=== PATIENT | female | born 1985 | race Caucasian/White ===

== ENCOUNTER → 2020-03-03 | Outpatient (CLI) | payer OTHER ==
[~2020-03-03] MED LIST: Augmentin 875-1 EACH PO; CETI5 PO; FLUT.05NI; IBUP800 PO; ONDA4 PO; PARO10 PO; RXONDA4ODT MM
[2020-03-04 17:08] LABS: HPV 16 Negative (Negative); HPV 18 Negative (Negative); HPV OTHER HR TYPES Positive (Negative)
== END | disposition home or self-care (01) ==
LOC: LAB 14:00 → LAB SHORT 14:00
PROVIDERS: Obstetrics & Gynecology
DX: Z01.419 Encounter for gynecological examination (general) (routine) without abnormal findings (principal)
CPT/HCPCS: 87624; 87625; G0123

== ENCOUNTER → 2020-04-02 | Outpatient (CLI) | payer OTHER | END | disposition home or self-care (01) | LOC: LAB SHORT 07:59 → PLD 07:59 | DX: R87.612 Low grade squamous intraepithelial lesion on cytologic smear of cervix (LGSIL) (principal); R87.810 Cervical high risk human papillomavirus (HPV) DNA test positive | CPT/HCPCS: 88305 ==

== ENCOUNTER → 2020-12-17 | Outpatient (CLI) | payer OTHER | END | disposition home or self-care (01) | LOC: LAB 10:20 → LAB SHORT 10:20 | DX: J02.9 Acute pharyngitis, unspecified (principal) | CPT/HCPCS: 87081 ==

== ENCOUNTER → 2021-03-04 | Outpatient (CLI) | payer OTHER ==
[2021-03-08 14:08] LABS: HPV 16 Negative (Negative); HPV 18 Negative (Negative); HPV OTHER HR TYPES Positive (Negative)
== END ==
LOC: LAB 17:00 → LAB SHORT 17:00
PROVIDERS: Obstetrics & Gynecology
DX: Z01.419 Encounter for gynecological examination (general) (routine) without abnormal findings (principal)
CPT/HCPCS: 87624; G0123

== ENCOUNTER 2021-06-18 06:45 | Day surgery (SDC) | payer OTHER ==
[~2021-06-18] VITALS: Ht 167.6 cm; Wt 127.3 kg
[2021-06-18] MEDS ORDERED: IBU600 M1 PO (07:26)
[2021-06-18] MEDS ORDERED: Vitamin D1000 UNI1 PO (07:26)
[2021-06-18] MEDS ORDERED: ESOM20 PO (07:26)
--- NOTE | 2021-06-18 08:32 | NUR ---
06/18/21 0832 Amos [place] BUPIVACAINE 0.5% 30 MLS MIXED W/ EPI 0.15 ML PER ORDER TO CONSTITUTE BUPIVACAINE 0.5% 1:200,000 FOR INJECTION AT OPSITE BY DR MCKINNEY. 30 MLS OF LOCAL INJECTED.
--- NOTE | 2021-06-18 16:29 | NUR ---
06/18/21 1629 TRI CONNER LATE ENTRY: WASTED FENTANLY 50 MCG AFTER PATIENT DISCHARGED. TRIED TO CHANGE AMOUNT GIVEN IN EMAR TO 50 MCG TOTAL BUT FENTANYL DISAPPEARED FROM EMAR SCREEN; UNSURE OF HOW THAT HAPPENED. - SEE VITAL RECORD FOR TIMES AND AMOUNTS. WITNESSED WASTE BY GURVINDER RN AND NEGRITA RN. UNABLE TO WASTE IN PYXIS DUE TO PATIENT DISCHARGED.
== END 2021-06-18 10:32 | disposition home or self-care (01) ==
LOC: ORSCSDS 06:45
PROVIDERS: Podiatrist Foot & Ankle Surgery
PROC: 0QBL0ZZ Excision of Right Tarsal, Open Approach (ICD-10-PCS; principal; 2021-06-18 08:15)
PROC: 0L8N0ZZ Division of Right Lower Leg Tendon, Open Approach (ICD-10-PCS; principal; 2021-06-18 08:15)
DX: M76.61 Achilles tendinitis, right leg (principal); M24.573 Contracture, unspecified ankle; E11.9 Type 2 diabetes mellitus without complications; E66.01 Morbid (severe) obesity due to excess calories; Z68.41 Body mass index [BMI] 40.0-44.9, adult; K21.9 Gastro-esophageal reflux disease without esophagitis; Z79.899 Other long term (current) drug therapy
CPT/HCPCS: 82947; A9270; C1713; J0171; J0690; J1100; J1885; J2250; J2405; J2704; J3010; J7120

== ENCOUNTER 2021-08-09 05:59 | Day surgery (SDC) | payer OTHER ==
[~2021-08-09 05:59] MED LIST changes: +ESOM20 PO; +IBU600 M1 PO; +Vitamin D1000 UNI1 PO
== END 2021-08-09 23:28 | disposition home or self-care (01) ==
LOC: WOUND 05:59
DX: T81.31XA Disruption of external operation (surgical) wound, not elsewhere classified, initial encounter (principal); Y83.8 Other surgical procedures as the cause of abnormal reaction of the patient, or of later complication, without mention of misadventure at the time of the procedure; L97.312 Non-pressure chronic ulcer of right ankle with fat layer exposed; M65.28 Calcific tendinitis, other site; M24.573 Contracture, unspecified ankle; R73.03 Prediabetes; K21.9 Gastro-esophageal reflux disease without esophagitis; E66.9 Obesity, unspecified; Z68.42 Body mass index [BMI] 45.0-49.9, adult
CPT/HCPCS: A9270; G0463

== ENCOUNTER 2021-08-16 02:24 | Day surgery (SDC) | payer OTHER | END 2021-08-16 22:45 | disposition home or self-care (01) | LOC: WOUND 02:24 | DX: L97.312 Non-pressure chronic ulcer of right ankle with fat layer exposed (principal); M65.28 Calcific tendinitis, other site; M24.573 Contracture, unspecified ankle | CPT/HCPCS: A9270 ==

== ENCOUNTER 2021-08-23 01:20 | Day surgery (SDC) | payer OTHER | END 2021-08-23 23:39 | disposition home or self-care (01) | LOC: WOUND 01:20 | DX: T81.31XA Disruption of external operation (surgical) wound, not elsewhere classified, initial encounter (principal); L97.312 Non-pressure chronic ulcer of right ankle with fat layer exposed; M65.272 Calcific tendinitis, left ankle and foot; M24.573 Contracture, unspecified ankle; Y83.9 Surgical procedure, unspecified as the cause of abnormal reaction of the patient, or of later complication, without mention of misadventure at the time of the procedure | CPT/HCPCS: A9270 ==

== ENCOUNTER 2021-08-30 02:10 | Day surgery (SDC) | payer OTHER | END 2021-08-30 23:29 | disposition home or self-care (01) | LOC: WOUND 02:10 | DX: T81.31XA Disruption of external operation (surgical) wound, not elsewhere classified, initial encounter (principal); M24.571 Contracture, right ankle; M65.28 Calcific tendinitis, other site | CPT/HCPCS: A9270 ==

== ENCOUNTER 2021-09-06 01:05 | Day surgery (SDC) | payer OTHER | END 2021-09-06 23:55 | disposition home or self-care (01) | LOC: WOUND 01:05 | DX: T81.31XA Disruption of external operation (surgical) wound, not elsewhere classified, initial encounter (principal); L97.312 Non-pressure chronic ulcer of right ankle with fat layer exposed; M65.28 Calcific tendinitis, other site; M24.573 Contracture, unspecified ankle; R73.03 Prediabetes; Y83.8 Other surgical procedures as the cause of abnormal reaction of the patient, or of later complication, without mention of misadventure at the time of the procedure | CPT/HCPCS: A9270 ==

== ENCOUNTER 2021-09-13 08:00 | Day surgery (SDC) | payer OTHER | END 2021-09-13 23:59 | disposition home or self-care (01) | LOC: WOUND 08:00 | DX: T81.31XA Disruption of external operation (surgical) wound, not elsewhere classified, initial encounter (principal); M65.28 Calcific tendinitis, other site; M24.573 Contracture, unspecified ankle ==

== ENCOUNTER 2021-09-20 01:52 | Day surgery (SDC) | payer OTHER | END 2021-09-20 22:52 | disposition home or self-care (01) | LOC: WOUND 01:52 | DX: T81.31XA Disruption of external operation (surgical) wound, not elsewhere classified, initial encounter (principal); M65.28 Calcific tendinitis, other site; M24.573 Contracture, unspecified ankle; Y83.9 Surgical procedure, unspecified as the cause of abnormal reaction of the patient, or of later complication, without mention of misadventure at the time of the procedure | CPT/HCPCS: A9270; G0463 ==

== ENCOUNTER 2021-09-27 01:12 | Day surgery (SDC) | payer OTHER | END 2021-09-27 23:08 | disposition home or self-care (01) | LOC: WOUND 01:12 | DX: T81.31XA Disruption of external operation (surgical) wound, not elsewhere classified, initial encounter (principal); L97.312 Non-pressure chronic ulcer of right ankle with fat layer exposed; M65.28 Calcific tendinitis, other site; M24.573 Contracture, unspecified ankle | CPT/HCPCS: A9270; G0463 ==

== ENCOUNTER 2021-10-04 01:29 | Day surgery (SDC) | payer OTHER | END 2021-10-04 22:56 | disposition home or self-care (01) | LOC: WOUND 01:29 | DX: T81.31XA Disruption of external operation (surgical) wound, not elsewhere classified, initial encounter (principal); L97.312 Non-pressure chronic ulcer of right ankle with fat layer exposed; M65.28 Calcific tendinitis, other site; M24.573 Contracture, unspecified ankle | CPT/HCPCS: A9270 ==

== ENCOUNTER 2021-10-11 01:02 | Day surgery (SDC) | payer OTHER | END 2021-10-11 23:29 | disposition home or self-care (01) | LOC: WOUND 01:02 | DX: T81.31XA Disruption of external operation (surgical) wound, not elsewhere classified, initial encounter (principal); L97.312 Non-pressure chronic ulcer of right ankle with fat layer exposed; M65.28 Calcific tendinitis, other site; M24.573 Contracture, unspecified ankle | CPT/HCPCS: A9270; G0463 ==

== ENCOUNTER 2021-10-18 01:12 | Day surgery (SDC) | payer OTHER | END 2021-10-18 22:47 | disposition home or self-care (01) | LOC: WOUND 01:12 | DX: L97.312 Non-pressure chronic ulcer of right ankle with fat layer exposed (principal); M65.28 Calcific tendinitis, other site; M24.573 Contracture, unspecified ankle | CPT/HCPCS: A9270 ==

== ENCOUNTER 2021-10-25 03:13 | Day surgery (SDC) | payer OTHER | END 2021-10-25 23:29 | disposition home or self-care (01) | LOC: WOUND 03:13 | DX: T81.31XA Disruption of external operation (surgical) wound, not elsewhere classified, initial encounter (principal); L97.312 Non-pressure chronic ulcer of right ankle with fat layer exposed; M65.28 Calcific tendinitis, other site; M24.573 Contracture, unspecified ankle | CPT/HCPCS: A9270 ==

== ENCOUNTER → 2022-04-11 | Outpatient (CLI) | payer OTHER ==
[2022-04-12 16:08] LABS: HPV 16 Negative (Negative); HPV 18 Negative (Negative); HPV OTHER HR TYPES Positive (Negative)
== END | disposition home or self-care (01) ==
LOC: LAB SHORT 11:37 → LAB 11:37
PROVIDERS: Obstetrics & Gynecology
DX: Z09 Encounter for follow-up examination after completed treatment for conditions other than malignant neoplasm (principal); Z87.42 Personal history of other diseases of the female genital tract
CPT/HCPCS: 87624; 87625; G0123

== ENCOUNTER → 2022-05-20 | Outpatient (CLI) | payer OTHER | END | disposition home or self-care (01) | LOC: LAB SHORT 07:49 → LAB 07:49 | DX: R87.810 Cervical high risk human papillomavirus (HPV) DNA test positive (principal) | CPT/HCPCS: 88305 ==

== ENCOUNTER → 2023-05-01 | Outpatient (CLI) | payer OTHER ==
[2023-05-04 12:10] LABS: HPV 16 Negative (Negative); HPV 18 Negative (Negative); HPV OTHER HR TYPES Positive (Negative)
== END ==
LOC: LAB SHORT 12:14 → LAB 12:14
PROVIDERS: Advanced Practice Midwife
DX: Z01.419 Encounter for gynecological examination (general) (routine) without abnormal findings (principal)
CPT/HCPCS: 87624; G0145

== ENCOUNTER → 2024-02-26 | Outpatient (CLI) | payer OTHER | END | disposition home or self-care (01) | LOC: LAB 17:24 → LAB SHORT 17:24 | DX: R30.0 Dysuria (principal) | CPT/HCPCS: 87077; 87086; 87186 ==

== ENCOUNTER → 2024-06-24 | Outpatient (CLI) | payer OTHER ==
[2024-06-30 18:09] LABS: HPV HIGH RISK BY TMA Not Detected; HPV SOURCE Vaginal
== END ==
LOC: LAB 15:44 → LAB SHORT 15:44
PROVIDERS: Obstetrics & Gynecology
DX: Z01.419 Encounter for gynecological examination (general) (routine) without abnormal findings (principal)
CPT/HCPCS: 87624; G0123